=== PATIENT | female | born 1995 | race Caucasian/White ===

== ENCOUNTER 2018-07-21 10:00 | Inpatient (IN) | payer BC ==
[2018-07-21] MEDS ORDERED: Citric Acid/Sodium Citrate Solution 30 ML Cup PO ONE (10:08)
[2018-07-21] MEDS ORDERED: Sodium Chloride 0.9% 2.5 ML Syringe FLUSH PRN (10:08)
[2018-07-21] MEDS ORDERED: Sodium Chloride 0.9% 10 ML Syringe FLUSH PRN (10:08)
[2018-07-21] MEDS ORDERED: Lactated Ringers 1,000 ML IV SCH ×2 (10:15→13:15)
[2018-07-21] MEDS ORDERED: Oxytocin/0.9 % Sodium Chloride 30 UNIT/500 ML BAG IV SCH (10:15)
[2018-07-21] MEDS ORDERED: ceFAZolin 2 GM in Premix Bag 1 BAG IV ONE (10:30)
[2018-07-21] MEDS ORDERED: Ondansetron 4 MG/2 ML SDV ONE (11:20)
[2018-07-21] MEDS ORDERED: Morphine PF 10 MG/10 ML SDV ONE (11:20)
--- NOTE | 2018-07-21 11:21 | PCM.PREANE ---
Preanesthetic Assessment - Anesthesia/Transfusion/Family Hx Anesthesia History: Prior Anesthesia Without Reaction Transfusion History: No Prior Transfusion(s) - Review of Systems General: No Symptoms Pulmonary: No Symptoms Cardiovascular: No Symptoms Neurological: No Symptoms Other: Reports: None - Physical Assessment NPO Status Date: 07/20/18 Height: 5 ft 3 in Weight: 90.265 kg ASA Class: 2 Mental Status: Alert & Oriented x3 Airway Class: Mallampati = 1 Dentition: Reports: Normal Dentition ROM/Head Extension: Full Lungs: Clear to Auscultation, Normal Respiratory Effort Cardiovascular: Regular Rate, Regular Rhythm - Lab Values: Laboratory Last Values WBC 8.71 K/uL (4.0-11.0) 07/21/18 10:32 RBC 4.61 M/uL (4.30-5.90) 07/21/18 10:32 Hgb 13.9 g/dL (12.0-16.0) 07/21/18 10:32 Hct 40.8 % (36.0-46.0) 07/21/18 10:32 MCV 88.5 fL (80.0-98.0) 07/21/18 10:32 MCH 30.2 pg (27.0-32.0) 07/21/18 10:32 MCHC 34.1 g/dL (31.0-37.0) 07/21/18 10:32 RDW Std Deviation 43.1 fl (28.0-62.0) 07/21/18 10:32 RDW Coeff of Zachary 13 % (11.0-15.0) 07/21/18 10:32 Plt Count 201 K/uL (150-400) 07/21/18 10:32 MPV 10.30 fL (7.40-12.00) 07/21/18 10:32 Nucleated RBC % 0.0 /100WBC 07/21/18 10:32 Nucleated RBCs # 0 K/uL 07/21/18 10:32 Blood Type O POSITIVE 07/21/18 10:32 - Allergies Allergies/Adverse Reactions: Allergies Allergy/AdvReac Type Severity Reaction Status Date / Time amoxicillin [Amoxicillin] Allergy Mild Hives Verified 07/21/18 08:49 ketorolac [From Toradol] Allergy Itching Verified 07/21/18 08:50 - Blood Blood Available: No - Anesthesia Plan Pre-Op Medication Ordered: Antacids - Acknowledgements Anesthesia Type Planned: Spinal Pt an Appropriate Candidate for the Planned Anesthesia: Yes Alternatives and Risks of Anesthesia Discussed w Pt/Guardian: Yes Pt/Guardian Understands and Agrees with Anesthesia Plan: Yes Additional Comments: PMH: scheduled repeat c section PLAN: spinal with duramorph PreAnesthesia Questionnaire - Past Health History Medical/Surgical History: Denies Medical/Surgical History Gastrointestinal History: Reports: GERD Other Gastrointestinal History: only during [employer]PRESENTATIVE History: Reports: Musculoskeletal History: Reports: Fracture Other Musculoskeletal History: both feet Neurological History: Reports: Concussion, Migraines Endocrine/Metabolic History: Reports: Obesity/BMI 30+ - Past Surgical History Female Surgical History: Reports: Section Musculoskeletal Surgical History: Reports: Shoulder Surgery Other Musculoskeletal Surgeries/Procedures:: right RTCR - SUBSTANCE USE Smoking Status *Q: Never Smoker Recreational Drug Use History: No - HOME MEDS Home Medications: Home Meds Vit #108/Iron/FA [ One Tablet] 1 tab PO DAILY 07/22/14 [History ] Butalbital/Aspirin/Caffeine [Fiorinal 50-325-40 MG] 1 cap PO ASDIRECTED PRN [History] Magnesium 250 mg PO TID 07/21/18 [History] - CURRENT (IN HOUSE) MEDS Current Meds: Current Medications Lactated Ringer's (Ringers, Lactated) 1,000 mls @ 500 mls/hr IV BOLUS FLORI Last Admin: 07/21/18 10:42 Dose: 999 mls/hr Oxytocin/Sodium Chloride (Oxytocin 30 Unit/500 Ml-Ns) 30 unit in 500 mls @ 250 mls/hr IV TITRATE FLORI Sodium Chloride (Saline Flush) 10 ml FLUSH ASDIRECTED PRN PRN Reason: Keep Vein Open Sodium Chloride (Saline Flush) 2.5 ml FLUSH ASDIRECTED PRN PRN Reason: Keep Vein Open Discontinued Medications Citric Acid/Sodium Citrate (Bicitra Solution) 30 ml PO ONETIME ONE Stop: 07/21/18 10:09 Cefazolin Sodium/Dextrose 2 gm (/ Premix) 50 mls @ 100 mls/hr IV ONETIME ONE Stop: 07/21/18 10:59
[2018-07-21] MEDS ORDERED: ceFAZolin 1 GM Vial ONE (12:02)
[2018-07-21] MEDS ORDERED: Sodium Chloride 0.9% 20 ML ONE (12:02)
[2018-07-21] MEDS ORDERED: Phenylephrine/Normal Saline 100 MCG/ML 10 ML Syringe ONE (12:33)
[2018-07-21] MEDS ORDERED: Oxytocin 10 Units/1 ML SDV ONE (12:33)
[2018-07-21] MEDS ORDERED: fentaNYL 100 MCG/2 ML SDV ONE (12:36)
[2018-07-21] MEDS ORDERED: Nalbuphine 10 MG/1 ML Vial IVPUSH PRN (12:40)
[2018-07-21] MEDS ORDERED: HYDROmorphone 2 MG/ML Syringe IVPUSH ONE (12:40)
[2018-07-21] MEDS ORDERED: fentaNYL 100 MCG/2 ML SDV IVPUSH PRN (12:40)
[2018-07-21] MEDS ORDERED: Lanolin 100% Cream 7 GM Tube TOP PRN (13:11)
[2018-07-21] MEDS ORDERED: Bisacodyl 10 MG Supp RECTAL PRN (13:11)
[2018-07-21] MEDS ORDERED: Acetaminophen/oxyCODONE 325-5 MG Tab PO PRN ×2 (13:11)
[2018-07-21] MEDS ORDERED: Ondansetron 4 MG/2 ML SDV IVPUSH PRN (13:11)
[2018-07-21] MEDS ORDERED: diphenhydrAMINE 50 MG/ML SDV IVPUSH PRN (13:11)
--- NOTE | 2018-07-21 13:18 | PCM.OPNOTE ---
- General Post-Op/Procedure Note Date of Surgery/Procedure: 07/21/18 Operative Procedure(s): Repeat section Findings: Female , Wt 3330grams, Apgars 8 and 9. Grossly normal placenta with 3 vessel cord. Normal appearing uterus, tubes and ovaries. No pelvic or intraabdominal adhesions Primary Surgeon: Marcella Diamond Fluid Replacement, Intraop: 1,200 Output, Urine Amount: 50 EBL in mLs: 600 Complications: None Condition: Good
[2018-07-21] MEDS: Acetaminophen 1,000 MG in Premix Bag 1 BAG IV SCH ×2 (13:35→20:39)
--- NOTE | 2018-07-21 15:35 | PCM.POSTAN ---
POST ANESTHESIA ASSESSMENT - MENTAL STATUS Mental Status: Alert, Oriented - RESPIRATORY Respiratory Status: Respiratory Rate WNL, Airway Patent, O2 Saturation Stable - CARDIOVASCULAR CV Status: Pulse Rate WNL, Blood Pressure Stable - GASTROINTESTINAL GI Status: No Symptoms - POST OP HYDRATION Hydration Status: Adequate & Stable - OBSERVATIONS Free Text/Narrative:: seen prior to discharge from PACU, documented laer in the day.
[2018-07-21] MEDS: Docusate Sodium 100 MG Cap PO SCH (23:24)
--- NOTE | 2018-07-22 01:55 | OR ---
SURGEON: Marcella Diamond MD DATE OF PROCEDURE: 07/21/2018 PREOPERATIVE DIAGNOSES: 1. Term at 39 weeks gestation. 2. Repeat elective section. 3. Prior section, declined . POSTOPERATIVE DIAGNOSES: 1. Term at 39 weeks gestation. 2. Repeat elective section. 3. Prior section, declined . 4. Delivered. PROCEDURE: Repeat low transverse section via Pfannenstiel. ANESTHESIA: Spinal. ESTIMATED BLOOD LOSS: 600 mL. IV FLUIDS: 1200 mL of crystalloid. URINE OUTPUT: 50 mL clear at the end of the procedure. COMPLICATIONS: None. CONDITION: Stable to recovery room. FINDINGS: Female infant with weight of 3330 g, scores of 8 and 9 at one and five minutes respectively. Grossly normal looking uterus, tubes, and ovaries. Grossly normal placenta with 3-vessel cord. No intraabdominal or pelvic adhesions visualized. INDICATIONS: Anuradha is a 23-year-old G2, P1-0-0-1, who was admitted for repeat elective section for a history of a prior section. She declined a trial of labor after section. DESCRIPTION OF PROCEDURE: The patient was taken to the operating room where spinal anesthesia was performed and found to be adequate. She was then prepped and draped in the usual sterile fashion in the dorsal supine position with a leftward tilt. She received 2 g of Ancef. SCDs were in place and an appropriate time-out was held. A Pfannenstiel skin incision was made along the old scar and carried through to the underlying layer of fascia with the Bovie. The fascia was scored in the midline and this incision was extended laterally with the Dubois scissors. The superior aspect of this fascial incision was grasped with Ganga clamps, elevated, and underlying rectus muscle was dissected with the Bovie. Attention was turned to the inferior aspect of this incision, which in similar fashion was grasped, tented up with Ganga clamps and the rectus muscle dissected off with the Bovie. The rectus muscle was then in the midline until the parietal peritoneum was reached. The parietal peritoneum was then entered bluntly and a careful digital sweep was performed with no adhesions palpated. This incision was then extended upwards and downwards with good visualization of internal organs and the bladder by both blunt and sharp dissection. An Lisandro O self-retaining retractor was then inserted into the abdominal cavity. The vesicouterine peritoneum was identified, grasped with pickups, and entered sharply with the Metzenbaum scissors and a bladder flap was created digitally. The lower uterine segment was then incised in a transverse fashion with a scalpel and extended upwards and downwards bluntly. The 's head was delivered atraumatically followed by the rest of the baby. The baby was vigorous and cried spontaneously at . The cord was double clamped and cut, and the infant was handed over to the waiting nursery staff. Cord blood and gas samples were obtained. The placenta was then delivered spontaneously via massage. The uterus was cleaned of all clots and debris. The hysterotomy was repaired in two layers using 0 Vicryl suture. The first layer was repaired in a running fashion and second imbricating layer was performed to obtain excellent hemostasis. The gutters were cleaned of all clots and debris. The tubes and ovaries were then inspected and found to be normal. Hemostasis was evident along the hysterotomy site. The Lisandro O retractor was removed. The peritoneal edges were identified and this layer was closed with 2-0 Vicryl in a running fashion. The fascial layer was found to be hemostatic. The fascia was then closed with 0 Vicryl in a running fashion. The subcuticular layer was then made hemostatic with the Bovie. The skin was closed with subcuticular stitches using 4-0 Monocryl suture. The patient tolerated the procedure well. Sponge, instrument, and needle counts were correct at the end of the procedure. The patient was taken to the recovery room in stable condition and the baby to the nursery in a stable condition. ADUMVIV / PARAGL /[id number] [id number]
[2018-07-22] MEDS: Acetaminophen 1,000 MG in Premix Bag 1 BAG IV SCH ×2 (03:04→08:28)
--- NOTE | 2018-07-22 07:12 | PCM.PNPP ---
- General Info Date of Service: 07/22/18 Functional Status: Reports: Pain Controlled, Tolerating Diet, Ambulating - Review of Systems General: Denies: Fever, Fatigue HEENT: Denies: Headaches Pulmonary: Denies: Shortness of Breath, Pleuritic Chest Pain, Cough Cardiovascular: Denies: Chest Pain, Palpitations, Dyspnea on Exertion Gastrointestinal: Denies: Abdominal Pain Genitourinary: Denies: Flank Pain - General Info Date of Service: 07/22/18 - Patient Data Vital Signs - Most Recent: Last Vital Signs Temp 36.4 C 07/22/18 05:00 Pulse 80 07/22/18 05:00 Resp 16 07/22/18 06:00 BP 98/54 L 07/22/18 05:00 Pulse Ox 95 07/22/18 06:00 Weight - Most Recent: 199 lb 0.004 oz I&O - Last 24 Hours: Intake & Output 07/21/18 07/22/18 07/22/18 22:59 06:59 14:59 Output Total 375 1200 Balance -375 -1200 Lab Results - Last 24 Hours: Laboratory Results - last 24 hr 07/21/18 07/21/18 07/21/18 Range/Units 10:32 10:32 12:28 WBC 8.71 (4.0-11.0) K/uL RBC 4.61 (4.30-5.90) M/uL Hgb 13.9 (12.0-16.0) g/dL Hct 40.8 (36.0-46.0) % MCV 88.5 (80.0-98.0) fL MCH 30.2 (27.0-32.0) pg MCHC 34.1 (31.0-37.0) g/dL RDW Std Deviation 43.1 (28.0-62.0) fl RDW Coeff of Zachary 13 (11.0-15.0) % Plt Count 201 (150-400) K/uL MPV 10.30 (7.40-12.00) fL Nucleated RBC % 0.0 /100WBC Nucleated RBCs # 0 K/uL Cord ABG pH 7.301 (7.18-7.38) Cord ABG Base Excess -4 (-10--2) Cord VBG pH 7.358 (7.25-7.45) Cord VBG Base Excess -4 (-10--2) Blood Type O POSITIVE Antibody Screen NEGATIVE 07/22/18 Range/Units 06:07 WBC (4.0-11.0) K/uL RBC (4.30-5.90) M/uL Hgb 11.8 L (12.0-16.0) g/dL Hct 34.9 L (36.0-46.0) % MCV (80.0-98.0) fL MCH (27.0-32.0) pg MCHC (31.0-37.0) g/dL RDW Std Deviation (28.0-62.0) fl RDW Coeff of Zachary (11.0-15.0) % Plt Count (150-400) K/uL MPV (7.40-12.00) fL Nucleated RBC % /100WBC Nucleated RBCs # K/uL Cord ABG pH (7.18-7.38) Cord ABG Base Excess (-10--2) Cord VBG pH (7.25-7.45) Cord VBG Base Excess (-10--2) Blood Type Antibody Screen Med Orders - Current: Current Medications Bisacodyl (Dulcolax) 10 mg RECTAL ONETIME PRN PRN Reason: Constipation Diphenhydramine HCl (Benadryl) 25 mg IVPUSH Q6H PRN PRN Reason: Itching or Nausea Last Admin: 07/21/18 14:58 Dose: 25 mg Docusate Sodium (Colace) 100 mg PO BID [facility] Last Admin: 07/21/18 23:24 Dose: Not Given Emollient Ointment (Lansinoh Hpa) 0 gm TOP ASDIRECTED PRN PRN Reason: Sore Nipples Fentanyl (Sublimaze) 50 mcg IVPUSH Q5M PRN PRN Reason: Pain (severe 7-10) Stop: 07/22/18 12:40 Lactated Ringer's (Ringers, Lactated) 1,000 mls @ 125 mls/hr IV ASDIRECTED [facility] Last Admin: 07/21/18 14:39 Dose: 125 mls/hr Acetaminophen 1,000 mg/ Premix 100 mls @ 400 mls/hr IV Q6H [facility] Stop: 07/22/18 07:44 Last Admin: 07/22/18 03:04 Dose: 400 mls/hr Ibuprofen (Motrin) 800 mg PO Q8H PRN PRN Reason: mild pain or fever Nalbuphine HCl (Nubain) 2.5 mg IVPUSH Q3H PRN PRN Reason: Pruritis Stop: 07/22/18 12:40 Ondansetron HCl (Zofran) 4 mg IVPUSH Q4H PRN PRN Reason: Nausea/Vomiting Oxycodone/Acetaminophen (Percocet 325-5 Mg) 1 tab PO Q4H PRN PRN Reason: Pain (moderate 4-6) Oxycodone/Acetaminophen (Percocet 325-5 Mg) 2 tab PO Q4H PRN PRN Reason: Pain (moderate 4-6) Discontinued Medications Cefazolin Sodium (Ancef) Confirm Administered Dose 2 gm .ROUTE .STK-MED ONE Stop: 07/21/18 12:03 Citric Acid/Sodium Citrate (Bicitra Solution) 30 ml PO ONETIME ONE Stop: 07/21/18 10:09 Last Admin: 07/21/18 11:38 Dose: 30 ml Fentanyl (Sublimaze) Confirm Administered Dose 100 mcg .ROUTE .STK-MED ONE Stop: 07/21/18 12:37 Hydromorphone HCl (Dilaudid) 2 mg IVPUSH ONETIME ONE Stop: 07/21/18 12:41 Last Admin: 07/21/18 23:25 Dose: Not Given Cefazolin Sodium/Dextrose 2 gm (/ Premix) 50 mls @ 100 mls/hr IV ONETIME ONE Stop: 07/21/18 10:59 Last Admin: 07/21/18 23:25 Dose: Not Given Lactated Ringer's (Ringers, Lactated) 1,000 mls @ 500 mls/hr IV BOLUS FLORI Last Admin: 07/21/18 10:42 Dose: 999 mls/hr Oxytocin/Sodium Chloride (Oxytocin 30 Unit/500 Ml-Ns) 30 unit in 500 mls @ 250 mls/hr IV TITRATE FLORI Sodium Chloride (Normal Saline) Confirm Administered Dose 20 mls @ as directed .ROUTE .STK-MED ONE Stop: 07/21/18 12:03 Acetaminophen (Ofirmev) Confirm Administered Dose 100 mls @ as directed IV .STK- MED ONE Stop: 07/21/18 13:07 Morphine Sulfate (Duramorph Pf) Confirm Administered Dose 10 mg .ROUTE .STK-MED ONE Stop: 07/21/18 11:21 Ondansetron HCl (Zofran) Confirm Administered Dose 4 mg .ROUTE .STK-MED ONE Stop: 07/21/18 11:21 Oxytocin (Pitocin) Confirm Administered Dose 30 unit .ROUTE .STK-MED ONE Stop: 07/21/18 12:34 Phenylephrine HCl (Phenylephrine In Ns 100 Mcg/Ml) Confirm Administered Dose 1 mg .ROUTE .STK-MED ONE Stop: 07/21/18 12:34 Sodium Chloride (Saline Flush) 10 ml FLUSH ASDIRECTED PRN PRN Reason: Keep Vein Open Sodium Chloride (Saline Flush) 2.5 ml FLUSH ASDIRECTED PRN PRN Reason: Keep Vein Open - Interaction Infant Disposition, : [place] in Room with Family Interaction: Holding Infant Infant Feeding: Breastfed ; Nursed Well, Continues to Breastfeed Support Person: Mother, Significant Other - Recovery Exam Fundal Tone: Firm Fundal Level: 1 Fingerbreadths Below Umbilicus Fundal Placement: Midline Lochia Amount: Small Lochia Color: Rubra/Red Urinary Elimination: Other (see below) (cather removed this am, yet to void) - Exam General: Alert, Oriented Neck: Supple Lungs: Clear to Auscultation, Normal Respiratory Effort Cardiovascular: Regular Rate, Regular Rhythm GI/Abdominal Exam: Normal Bowel Sounds, Non-Tender Extremities: Non-Tender, Pedal Edema Wound/Incisions: Healing Well Psy/Mental Status: Alert, Normal Affect, Normal Mood - Problem List & Annotations (1) section SNOMED Code(s): 41043628 - section Status: Acute Current Visit: Yes - Problem List Review Problem List Initiated/Reviewed/Updated: Yes - My Orders Last 24 Hours: My Active Orders 07/21/18 10:09 Procedure Site Prep Instruct [RC] ASDIRECTED Up ad Flory [RC] ASDIRECTED Vital Signs [RC] PER UNIT ROUTINE 07/21/18 10:11 Notify Provider Vital Signs [RC] PRN 07/21/18 13:11 Patient Status [ADT] Routine Ambulate [RC] PER UNIT ROUTINE Communication Order [RC] PER UNIT ROUTINE May Shower [RC] ASDIRECTED RT Incentive Spirometry [RC] Q2HWA Vital Signs [RC] PER UNIT ROUTINE Acetaminophen/oxyCODONE [Percocet 325-5 MG] 1 tab PO Q4H PRN Acetaminophen/oxyCODONE [Percocet 325-5 MG] 2 tab PO Q4H PRN Bisacodyl [Dulcolax] 10 mg RECTAL ONETIME PRN Ibuprofen [Motrin] 800 mg PO Q8H PRN Lanolin [Lansinoh HPA] See Dose Instructions TOP ASDIRECTED PRN Ondansetron [Zofran] 4 mg IVPUSH Q4H PRN diphenhydrAMINE [Benadryl] 25 mg IVPUSH Q6H PRN Abdominal Binder [OM.PC] Routine Assess Lochia [WOMSER] Per Unit Routine Assess Uterine Involution [WOMSER] Per Unit Routine Breast Pump [WOMSER] Per Unit Routine Peripheral IV Discontinue [OM.PC] Routine Sequential Compression Device [OM.PC] Per Unit Routine Resuscitation Status Routine 07/21/18 13:13 Intake and Output [RC] Q4H Notify Provider Intake and Out [RC] ASDIRECTED Notify Provider Vital Signs [RC] ASDIRECTED 07/21/18 13:15 Lactated Ringers [Ringers, Lactated] 1,000 ml IV ASDIRECTED 07/21/18 13:30 Acetaminophen [Ofirmev] 1,000 mg Premix Bag 1 bag IV Q6H 07/21/18 21:00 Docusate Sodium [Colace] 100 mg PO BID 07/21/18 Dinner Regular Diet [DIET] - Assessment Assessment:: POD#1 s/p RLTCS, stable and afebrile Doing well - Plan Plan:: Continue routine care and aim for discharge tomorrow
--- NOTE | 2018-07-22 07:48 | PCM48HPAN ---
Post Anesthesia Note - EVALUATION WITHIN 48HRS OF ANESTHETIC Vital Signs in Normal Range: Yes Patient Participated in Evaluation: Yes Respiratory Function Stable: Yes Airway Patent: Yes Cardiovascular Function Stable: Yes Hydration Status Stable: Yes Pain Control Satisfactory: Yes Nausea and Vomiting Control Satisfactory: Yes Mental Status Recovered: Yes Resp Rate: 16 - COMMENTS/OBSERVATIONS Free Text/Narrative:: Pt doing well this AM. States that she did struggle with pruritis overnight and medications "took the edge off", but seems to be doing better this AM. Pt states she has been out of bed with no problems.
[2018-07-22] MEDS: Docusate Sodium 100 MG Cap PO SCH ×2 (08:28→21:30)
[2018-07-22] MEDS: Ibuprofen 800 MG Tab PO PRN ×2 (09:07→16:26)
[2018-07-23] MEDS: Ibuprofen 800 MG Tab PO PRN ×2 (00:12→09:19)
[2018-07-23] MEDS ORDERED: Magnesium Hydroxide 400 MG/5 ML Susp 30 ML Cup PO ONE (08:04)
--- NOTE | 2018-07-23 08:17 | PCM.PNPP ---
- General Info Date of Service: 07/23/18 Functional Status: Reports: Pain Controlled, Tolerating Diet, Ambulating, Urinating - Review of Systems General: Denies: Fever, Chills HEENT: Denies: Headaches Pulmonary: Denies: Shortness of Breath, Pleuritic Chest Pain Cardiovascular: Denies: Chest Pain, Palpitations Gastrointestinal: Denies: Abdominal Pain Genitourinary: Denies: Dysuria, Incontinence, Flank Pain Psychiatric: Denies: Confusion, Depression, Anxiety - General Info Date of Service: 07/23/18 - Patient Data Vital Signs - Most Recent: Last Vital Signs Temp 36.3 C 07/22/18 19:42 Pulse 96 07/22/18 19:42 Resp 16 07/22/18 19:42 BP 107/74 07/22/18 19:42 Pulse Ox 96 07/22/18 19:42 Weight - Most Recent: 199 lb 0.004 oz Med Orders - Current: Current Medications Bisacodyl (Dulcolax) 10 mg RECTAL ONETIME PRN PRN Reason: Constipation Diphenhydramine HCl (Benadryl) 25 mg IVPUSH Q6H PRN PRN Reason: Itching or Nausea Last Admin: 07/21/18 14:58 Dose: 25 mg Docusate Sodium (Colace) 100 mg PO BID [facility] Last Admin: 07/22/18 21:30 Dose: 100 mg Emollient Ointment (Lansinoh Hpa) 0 gm TOP ASDIRECTED PRN PRN Reason: Sore Nipples Lactated Ringer's (Ringers, Lactated) 1,000 mls @ 125 mls/hr IV ASDIRECTED [facility] Last Admin: 07/21/18 14:39 Dose: 125 mls/hr Ibuprofen (Motrin) 800 mg PO Q8H PRN PRN Reason: mild pain or fever Last Admin: 07/23/18 00:12 Dose: 800 mg Ondansetron HCl (Zofran) 4 mg IVPUSH Q4H PRN PRN Reason: Nausea/Vomiting Oxycodone/Acetaminophen (Percocet 325-5 Mg) 1 tab PO Q4H PRN PRN Reason: Pain (moderate 4-6) Oxycodone/Acetaminophen (Percocet 325-5 Mg) 2 tab PO Q4H PRN PRN Reason: Pain (moderate 4-6) Discontinued Medications Cefazolin Sodium (Ancef) Confirm Administered Dose 2 gm .ROUTE .STK-MED ONE Stop: 07/21/18 12:03 Citric Acid/Sodium Citrate (Bicitra Solution) 30 ml PO ONETIME ONE Stop: 07/21/18 10:09 Last Admin: 07/21/18 11:38 Dose: 30 ml Fentanyl (Sublimaze) Confirm Administered Dose 100 mcg .ROUTE .STK-MED ONE Stop: 07/21/18 12:37 Fentanyl (Sublimaze) 50 mcg IVPUSH Q5M PRN PRN Reason: Pain (severe 7-10) Stop: 07/22/18 12:40 Hydromorphone HCl (Dilaudid) 2 mg IVPUSH ONETIME ONE Stop: 07/21/18 12:41 Last Admin: 07/21/18 23:25 Dose: Not Given Cefazolin Sodium/Dextrose 2 gm (/ Premix) 50 mls @ 100 mls/hr IV ONETIME ONE Stop: 07/21/18 10:59 Last Admin: 07/21/18 23:25 Dose: Not Given Lactated Ringer's (Ringers, Lactated) 1,000 mls @ 500 mls/hr IV BOLUS FLORI Last Admin: 07/21/18 10:42 Dose: 999 mls/hr Oxytocin/Sodium Chloride (Oxytocin 30 Unit/500 Ml-Ns) 30 unit in 500 mls @ 250 mls/hr IV TITRATE FLORI Sodium Chloride (Normal Saline) Confirm Administered Dose 20 mls @ as directed .ROUTE .STK-MED ONE Stop: 07/21/18 12:03 Acetaminophen (Ofirmev) Confirm Administered Dose 100 mls @ as directed IV .STK- MED ONE Stop: 07/21/18 13:07 Acetaminophen 1,000 mg/ Premix 100 mls @ 400 mls/hr IV Q6H [facility] Stop: 07/22/18 07:44 Last Admin: 07/22/18 08:28 Dose: 400 mls/hr Magnesium Hydroxide (Milk Of Magnesia) 30 ml PO ONETIME ONE Stop: 07/23/18 08:05 Morphine Sulfate (Duramorph Pf) Confirm Administered Dose 10 mg .ROUTE .STK-MED ONE Stop: 07/21/18 11:21 Nalbuphine HCl (Nubain) 2.5 mg IVPUSH Q3H PRN PRN Reason: Pruritis Stop: 07/22/18 12:40 Ondansetron HCl (Zofran) Confirm Administered Dose 4 mg .ROUTE .STK-MED ONE Stop: 07/21/18 11:21 Oxytocin (Pitocin) Confirm Administered Dose 30 unit .ROUTE .STK-MED ONE Stop: 07/21/18 12:34 Phenylephrine HCl (Phenylephrine In Ns 100 Mcg/Ml) Confirm Administered Dose 1 mg .ROUTE .STK-MED ONE Stop: 07/21/18 12:34 Sodium Chloride (Saline Flush) 10 ml FLUSH ASDIRECTED PRN PRN Reason: Keep Vein Open Sodium Chloride (Saline Flush) 2.5 ml FLUSH ASDIRECTED PRN PRN Reason: Keep Vein Open - Infant Interaction Disposition, : in Room with Family Infant Interaction: Holding Infant Feeding: Breastfed ; Nursed Well, Continues to Breastfeed Support Person: Mother, Significant Other - Recovery Exam Fundal Tone: Firm Fundal Level: 1 Fingerbreadths Below Umbilicus Fundal Placement: Midline Lochia Amount: Scant Lochia Color: Rubra/Red Perineum Description: Intact, Minimal Bruising/Swelling Episiotomy/Laceration: Approximated Bladder Status: Voiding - Exam General: Alert, Oriented Lungs: Clear to Auscultation, Normal Respiratory Effort Cardiovascular: Regular Rate, Regular Rhythm Extremities: Non-Tender, Pedal Edema Wound/Incisions: Healing Well Psy/Mental Status: Alert, Normal Affect, Normal Mood - Problem List & Annotations (1) section SNOMED Code(s): 93976406 - section Status: Acute Current Visit: Yes - Problem List Review Problem List Initiated/Reviewed/Updated: Yes - Assessment Assessment:: POD# s/p RLTCS, stable and afebrile Doing well and clinically stable for discharge today - Plan Plan:: Discharge precautions reviewed Nothing in the vagina for 6 weeks Continue PNV. Bleeding and infection precautions reviewed depression S/S reviewed, encouraged to call with concerns Follow up in clinic as already scheduled
[2018-07-23] MEDS: Docusate Sodium 100 MG Cap PO SCH (09:20)
[2018-07-23 13:29] VITALS: BP 117/72
== END 2018-07-23 11:45 | disposition home or self-care (01) | DRG 540 ==
LOC: MW.OB 10:00
PROVIDERS: ADMIT Obstetrics & Gynecology; ATTEND Obstetrics & Gynecology
PROC: 6A550ZT Pheresis of Cord Blood Stem Cells, Single (ICD-10-PCS; principal; 2018-07-21)
PROC: 10D00Z1 Extraction of Products of Conception, Low, Open Approach (ICD-10-PCS; principal; 2018-07-21)
DX: O34.211 Maternal care for low transverse scar from previous cesarean delivery (principal); N85.8 Other specified noninflammatory disorders of uterus; O99.214 Obesity complicating childbirth; E66.9 Obesity, unspecified; O99.354 Diseases of the nervous system complicating childbirth; Z3A.39 39 weeks gestation of pregnancy; Z37.0 Single live birth; O99.62 Diseases of the digestive system complicating childbirth; K21.9 Gastro-esophageal reflux disease without esophagitis; G43.909 Migraine, unspecified, not intractable, without status migrainosus; O99.73 Diseases of the skin and subcutaneous tissue complicating the puerperium; L29.9 Pruritus, unspecified; Z88.1 Allergy status to other antibiotic agents; Z88.8 Allergy status to other drugs, medicaments and biological substances
CPT/HCPCS: 36415; 59025; 82803; 85014; 85018; 85027; 86850; 86900; 86901; A9270-GY; J0131; J0690; J1200; J2270; J2370; J2405; J2590; J3010; J7120

== ENCOUNTER 2020-08-17 06:49 | Inpatient (IN) | payer BC ==
[2020-08-17] MEDS ORDERED: Phenylephrine 1% 10 MG/ML SDV ONE (07:25)
[2020-08-17] MEDS ORDERED: Oxytocin 10 Units/1 ML SDV ONE (07:25)
[2020-08-17] MEDS ORDERED: Ondansetron 4 MG/2 ML SDV ONE (07:25)
[2020-08-17] MEDS ORDERED: Ketorolac 30 MG/ML SDV ONE (07:25)
[2020-08-17] MEDS ORDERED: ceFAZolin 1 GM Vial ONE (07:26)
[2020-08-17] MEDS ORDERED: Morphine PF 10 MG/10 ML SDV ONE (07:29)
--- NOTE | 2020-08-17 07:41 | PCM.PREANE ---
Preanesthetic Assessment - Anesthesia/Transfusion/Family Hx Anesthesia History: Prior Anesthesia Without Reaction Family History of Anesthesia Reaction: No Transfusion History: No Prior Transfusion(s) - Physical Assessment NPO Status Date: 08/17/20 NPO Status Time: 00:05 ASA Class: 2E - Allergies Allergies/Adverse Reactions: Allergies Allergy/AdvReac Type Severity Reaction Status Date / Time amoxicillin [Amoxicillin] Allergy Mild Hives Verified 08/16/20 08:03 cefdinir [From Omnicef] Allergy Hives Verified 08/16/20 08:03 ketorolac [From Toradol] Allergy Itching Verified 08/16/20 08:03 - Acknowledgements Anesthesia Type Planned: Spinal Pt an Appropriate Candidate for the Planned Anesthesia: Yes Alternatives and Risks of Anesthesia Discussed w Pt/Guardian: Yes Pt/Guardian Understands and Agrees with Anesthesia Plan: Yes PreAnesthesia Questionnaire - Past Health History Medical/Surgical History: Denies Medical/Surgical History Gastrointestinal History: Reports: GERD Other Gastrointestinal History: only during [employer] History: Reports: Musculoskeletal History: Reports: Fracture Other Musculoskeletal History: both feet Neurological History: Reports: Concussion, Migraines Endocrine/Metabolic History: Reports: Obesity/BMI 30+ - Past Surgical History Female Surgical History: Reports: Section Musculoskeletal Surgical History: Reports: Shoulder Surgery Other Musculoskeletal Surgeries/Procedures:: right RTCR - HOME MEDS Home Medications: Home Meds Mv-Mn/Iron/FA/Herbal/Digestive [ One Tablet] 1 tab PO DAILY 07/22/14 [History] Venlafaxine [Effexor] 75 mg PO DAILY 08/10/20 [History] - CURRENT (IN HOUSE) MEDS Current Meds: Current Medications Discontinued Medications Cefazolin Sodium (Ancef) Confirm Administered Dose 2 gm .ROUTE .STK-MED ONE Stop: 08/17/20 07:27 Ketorolac Tromethamine (Toradol) Confirm Administered Dose 30 mg .ROUTE .STK-MED ONE Stop: 08/17/20 07:26 Morphine Sulfate (Duramorph Pf) Confirm Administered Dose 10 mg .ROUTE .STK-MED ONE Stop: 08/17/20 07:30 Ondansetron HCl (Zofran) Confirm Administered Dose 4 mg .ROUTE .STK-MED ONE Stop: 08/17/20 07:26 Oxytocin (Pitocin) Confirm Administered Dose 20 unit .ROUTE .STK-MED ONE Stop: 08/17/20 07:26 Phenylephrine HCl (Pablo-Synephrine) Confirm Administered Dose 10 mg .ROUTE .STK- MED ONE Stop: 08/17/20 07:26
[2020-08-17] MEDS ORDERED: Sodium Chloride 0.9% 10 ML SDV IV PRN (07:46)
[2020-08-17] MEDS ORDERED: Sodium Chloride 0.9% 10 ML Syringe FLUSH PRN (07:46)
[2020-08-17] MEDS ORDERED: Citric Acid/Sodium Citrate Solution 30 ML Cup PO ONE (07:46)
[2020-08-17] MEDS ORDERED: Sodium Chloride 0.9% 2.5 ML Syringe FLUSH PRN (07:46)
[2020-08-17] MEDS ORDERED: Oxytocin/0.9 % Sodium Chloride 30 UNIT/500 ML BAG IV SCH (08:00)
[2020-08-17] MEDS: Lactated Ringers 1,000 ML IV SCH ×2 (08:05→08:35)
[2020-08-17] MEDS ORDERED: Midazolam 1 MG/ML 2 ML SDV ONE (09:34)
[2020-08-17] MEDS ORDERED: diphenhydrAMINE 50 MG/ML SDV IVPUSH PRN (10:21)
[2020-08-17] MEDS ORDERED: Ondansetron 4 MG/2 ML SDV IVPUSH PRN (10:21)
[2020-08-17] MEDS ORDERED: Tranexamic Acid 1,000 MG in Sodium Chloride 0.9% 100 ML IV PRN (10:21)
[2020-08-17] MEDS ORDERED: Bisacodyl 10 MG Supp RECTAL PRN (10:21)
[2020-08-17] MEDS ORDERED: Misoprostol 200 MCG Tab RECTAL PRN (10:21)
[2020-08-17] MEDS ORDERED: Ibuprofen 800 MG Tab PO PRN (10:21)
[2020-08-17] MEDS ORDERED: Lanolin 100% Cream 7 GM Tube TOP PRN (10:21)
[2020-08-17] MEDS ORDERED: Acetaminophen/oxyCODONE 325-5 MG Tab PO PRN (10:21)
[2020-08-17] MEDS ORDERED: Methylergonovine 0.2 MG/1 ML Amp IM PRN (10:21)
[2020-08-17] MEDS ORDERED: Oxytocin 10 Units/1 ML SDV IM PRN (10:21)
--- NOTE | 2020-08-17 10:26 | PCM.OPNOTE ---
<Celia Brock - Last Filed: 08/17/20 10:21> - General Post-Op/Procedure Note Date of Surgery/Procedure: 08/17/20 Operative Procedure(s): Repeat section Findings: Repeat section delivering viable male , weight 3740g, apgars 8 & 9. Pre Op Diagnosis: Term Post-Op Diagnosis: section delivered Anesthesia Technique: Spinal Primary Surgeon: Sylwia Barlow Secondary Surgeon: Celia Brock ([id number]) Pathology: None known Fluid Replacement, Intraop: 1,000 Output, Urine Amount: 500 EBL in mLs: 500 Complications: None known Condition: Stable Free Text/Narrative:: Intake & Output 08/16/20 08/17/20 08/17/20 22:59 06:59 14:59 Intake Total 999 Balance 999 <Sylwia Barlow - Last Filed: 08/17/20 14:28> - General Post-Op/Procedure Note Operative Procedure(s): Tertiary Lower segment transverse section Findings: Live male delivered at 931am , 8/9 weight 3740g Pre Op Diagnosis: 25yo @ 38w4d for tertiary Free Text/Narrative:: Intake & Output 08/16/20 08/17/20 08/17/20 22:59 06:59 14:59 Intake Total 2999 Output Total 1100 Balance 1899
[2020-08-17] MEDS ORDERED: Oxytocin/Lactated Ringers 30 UNIT/500 ML BAG IV SCH (10:30)
[2020-08-17] MEDS ORDERED: Ketorolac 30 MG/ML SDV IVPUSH SCH (10:30)
[2020-08-17] MEDS ORDERED: Lactated Ringers 1,000 ML IV SCH (10:30)
--- NOTE | 2020-08-17 10:59 | PCM.POSTAN ---
POST ANESTHESIA ASSESSMENT - MENTAL STATUS Mental Status: Alert - RESPIRATORY Respiratory Status: Respiratory Rate WNL - CARDIOVASCULAR CV Status: Pulse Rate WNL - GASTROINTESTINAL GI Status: No Symptoms - POST OP HYDRATION Hydration Status: Adequate & Stable
[2020-08-17] MEDS: Venlafaxine 75 MG Cap.ER PO SCH (12:02)
[2020-08-17] MEDS: Acetaminophen/oxyCODONE 325-5 MG Tab PO PRN ×2 (12:41→19:37)
[2020-08-17] MEDS: Nalbuphine 10 MG/1 ML Vial IVPUSH PRN (14:18)
--- NOTE | 2020-08-17 18:31 | OR ---
SURGEON: DONIS AGUILAR DATE OF PROCEDURE: 08/17/2020 PREOPERATIVE DIAGNOSIS: A 25-year-old, G3, P 2-0-0-2, with prelabor rupture of membrane, previous section x2. POSTOPERATIVE DIAGNOSIS: A 25-year-old, G3, P 2-0-0-2, with prelabor rupture of membrane, previous section x2. PROCEDURE: Tertiary lower segment section. ANAESTHESIA Spinal ESTIMATED BLOOD LOSS: 500. IV FLUID: 1000. URINE OUTPUT: 500. COMPLICATIONS: None NOTES AND FINDINGS: A live male delivered at 9:31 a.m. score is 8 and 9. Weight is 3740 g. BRIEF HISTORY ABOUT THE PATIENT: She is a 25-year-old, G3, P 2-0-0-2. She came in complaining of leakage of fluid and had some meconium in it. She was consented for a . She understood the risks, benefits, and alternatives, and she decided to proceed. DESCRIPTION OF PROCEDURE: The patient was taken to the operating room where spinal anesthesia was performed without difficulty. She was prepared and draped in the dorsal supine position with a leftward tilt. A Pfannenstiel skin incision was done with a scalpel and carried down to the fascia with the Bovie. The fascia was incised and extended upward and laterally. Fascia was from the rectus muscle superiorly and inferiorly. Very minimal adhesions were noted. The abdomen was entered in with blunt and sharp dissection. After entering into the peritoneum, it was extended manually to expose the lower uterine segment. The bladder flap was created after the Lisandro retractor was placed to expose the lower uterine segment. A lower uterine incision was made with a scalpel and extended manually. Fetus was in occiput transverse position and was elevated to the level of the incision. With fundal pressure, fetus was delivered without difficulty. Delayed cord clamping was observed. The cord was clamped and cut. The was handed over to the awaiting welding machine tender. The placenta was then delivered by manual massage of the uterine fundus. The uterus was then cleaned with a laparotomy sponge. The uterine incision was closed with two layers, first layer with 0 Vicryl, second layer was closed with 0 Monocryl. The incision was inspected and noted to be hemostatic. Both adnexa were also inspected and noted to be normal. The gutters were cleaned with moist laparotomy sponge. The Lisandro retractor was then removed and the peritoneum was closed. Then, the fascia was closed with 0 Vicryl in a continuous fashion. The skin was closed with 4-0 Monocryl in a continuous fashion. All instrument and pad counts were correct x2. BEBO / VAHID /[id number] MTDD
[2020-08-17] MEDS: Docusate Sodium 100 MG Cap PO SCH (20:25)
[2020-08-18] MEDS: Acetaminophen/oxyCODONE 325-5 MG Tab PO PRN ×3 (01:11→16:03)
[2020-08-18] MEDS: Nalbuphine 10 MG/1 ML Vial IVPUSH PRN (02:04)
[2020-08-18] MEDS ORDERED: Ibuprofen 800 MG Tab PO PRN (08:20)
[2020-08-18] MEDS ORDERED: Magnesium Hydroxide 400 MG/5 ML Susp 30 ML Cup PO PRN (08:20)
--- NOTE | 2020-08-18 08:29 | PCM.PNPP ---
- General Info Date of Service: 08/18/20 Subjective Update: Patient is doing well. Desires Ibuprofen. Has a reported history to Toradol, causing itching, but suspect allergy actually to Duramorph from epidural as she has not received Toradol this post-op course and is having itching. Also desires Milk of Magnesia. Bleeding minimal. going well. Has voided. Would like to shower. Functional Status: Reports: Pain Controlled, Tolerating Diet, Ambulating, Urinating - Review of Systems General: Reports: No Symptoms HEENT: Reports: No Symptoms Pulmonary: Reports: No Symptoms Cardiovascular: Reports: No Symptoms Gastrointestinal: Reports: No Symptoms Genitourinary: Reports: No Symptoms Musculoskeletal: Reports: No Symptoms Skin: Reports: No Symptoms Neurological: Reports: No Symptoms Psychiatric: Reports: No Symptoms - Patient Data Vital Signs - Most Recent: Last Vital Signs Temp 36.4 C 08/18/20 07:30 Pulse 102 H 08/18/20 07:30 Resp 16 08/18/20 07:30 BP 93/59 L 08/18/20 07:30 Pulse Ox 97 08/18/20 07:30 Weight - Most Recent: 94.347 kg I&O - Last 24 Hours: Intake & Output 08/17/20 08/18/20 08/18/20 22:59 06:59 14:59 Intake Total 1200 Output Total 750 675 Balance 450 -675 Lab Results - Last 24 Hours: Laboratory Results - last 24 hr 08/17/20 08/17/20 08/18/20 Range/Units 07:40 08:00 05:23 Hgb 11.3 L (12.0-16.0) g/dL Hct 34.6 L (36.0-46.0) % SARS-CoV-2 RNA (STEF) NEGATIVE (NEGATIVE) Blood Type O POSITIVE Antibody Screen NEGATIVE Med Orders - Current: Current Medications Bisacodyl (Dulcolax) 10 mg RECTAL ONETIME PRN PRN Reason: Constipation Diphenhydramine HCl (Benadryl) 25 mg IVPUSH Q6H PRN PRN Reason: Itching or Nausea Last Admin: 08/17/20 11:16 Dose: 25 mg Documented by: Docusate Sodium (Colace) 100 mg PO BID FLORI Last Admin: 08/17/20 20:25 Dose: 100 mg Documented by: Emollient Ointment (Lansinoh Hpa) 0 gm TOP ASDIRECTED PRN PRN Reason: Sore Nipples Last Admin: 08/17/20 13:08 Dose: 1 applic Documented by: Lactated Ringer's (Ringers, Lactated) 1,000 mls @ 500 mls/hr IV BOLUS FLORI Last Admin: 08/17/20 08:35 Dose: 999 mls/hr Documented by: Oxytocin/Sodium Chloride (Oxytocin 30 Unit/500 Ml-Ns) 30 unit in 500 mls @ 250 mls/hr IV TITRATE FLORI Lactated Ringer's (Ringers, Lactated) 1,000 mls @ 125 mls/hr IV ASDIRECTED FLORI Last Admin: 08/17/20 13:06 Dose: 125 mls/hr Documented by: Oxytocin/Lactated Ringer's (Pitocin In Lr 30 Units/500 Ml) 30 unit in 500 mls @ 2 mls/hr IV TITRATE FLORI; Protocol Tranexamic Acid 1,000 mg/ (Sodium Chloride) 110 mls @ 660 mls/hr IV ONETIME PRN PRN Reason: Bleeding Ibuprofen (Motrin) 800 mg PO Q8H PRN PRN Reason: Abdominal Pain Magnesium Hydroxide (Milk Of Magnesia) 30 ml PO BID PRN PRN Reason: Constipation Methylergonovine Maleate (Methergine) 0.2 mg IM ONETIME PRN PRN Reason: Excessive Vaginal Bleeding Misoprostol (Cytotec) 1,000 mcg RECTAL ONETIME PRN PRN Reason: excessive bleeding Nalbuphine HCl (Nubain) 5 mg IVPUSH Q3H PRN PRN Reason: Itching Last Admin: 08/18/20 02:04 Dose: 5 mg Documented by: Ondansetron HCl (Zofran) 4 mg IVPUSH Q4H PRN PRN Reason: Nausea/Vomiting Oxycodone/Acetaminophen (Percocet 325-5 Mg) 1 tab PO Q4H PRN PRN Reason: Pain (moderate 4-6) Oxycodone/Acetaminophen (Percocet 325-5 Mg) 2 tab PO Q4H PRN PRN Reason: Pain (moderate 4-6) Last Admin: 08/18/20 05:23 Dose: 2 tab Documented by: Oxytocin (Pitocin) 10 unit IM ASDIRECTED PRN PRN Reason: Excessive Vaginal Bleeding Sodium Chloride (Saline Flush) 10 ml FLUSH ASDIRECTED PRN PRN Reason: Keep Vein Open Sodium Chloride (Saline Flush) 2.5 ml FLUSH ASDIRECTED PRN PRN Reason: Keep Vein Open Sodium Chloride (Normal Saline) 10 ml IV ASDIRECTED PRN PRN Reason: IV Use Venlafaxine HCl (Effexor Xr) 75 mg PO DAILY [facility] Last Admin: 08/17/20 12:02 Dose: 75 mg Documented by: Discontinued Medications Cefazolin Sodium (Ancef) Confirm Administered Dose 2 gm .ROUTE .STK-MED ONE Stop: 08/17/20 07:27 Citric Acid/Sodium Citrate (Bicitra Solution) 30 ml PO ONETIME ONE Stop: 08/17/20 07:47 Last Admin: 08/17/20 09:01 Dose: Not Given Documented by: Ibuprofen (Motrin) 800 mg PO Q8H PRN PRN Reason: mild pain or fever Ketorolac Tromethamine (Toradol) Confirm Administered Dose 30 mg .ROUTE .STK-MED ONE Stop: 08/17/20 07:26 Ketorolac Tromethamine (Toradol) 30 mg IVPUSH Q6H [facility] Stop: 08/18/20 10:31 Midazolam HCl (Versed 1 Mg/Ml) Confirm Administered Dose 2 mg .ROUTE .STK-MED ONE Stop: 08/17/20 09:35 Morphine Sulfate (Duramorph Pf) Confirm Administered Dose 10 mg .ROUTE .STK-MED ONE Stop: 08/17/20 07:30 Ondansetron HCl (Zofran) Confirm Administered Dose 4 mg .ROUTE .STK-MED ONE Stop: 08/17/20 07:26 Oxytocin (Pitocin) Confirm Administered Dose 20 unit .ROUTE .STK-MED ONE Stop: 08/17/20 07:26 Phenylephrine HCl (Pablo-Synephrine) Confirm Administered Dose 10 mg .ROUTE .STK- MED ONE Stop: 08/17/20 07:26 - Interaction Disposition, : [place] in Room with Family Feeding: Breastfed ; Nursed Well Support Person: Mother, Significant Other - Recovery Exam Fundal Tone: Firm Fundal Level: 1 Fingerbreadths Below Umbilicus Fundal Placement: Midline Lochia Amount: Scant Lochia Color: Rubra/Red Bladder Status: Voiding Urinary Elimination: Voided Other Urinary Elimination, : Waiting for post catheter void. - Exam General: Alert, Oriented Neck: Supple Lungs: Normal Respiratory Effort GI/Abdominal Exam: Soft, Non-Tender, No Distention Extremities: No Pedal Edema Skin: Warm, Dry, Intact Wound/Incisions: Dressing Dry and Intact Neurological: No New Focal Deficit Psy/Mental Status: Alert, Normal Affect, Normal Mood - Problem List & Annotations (1) section SNOMED Code(s): 07963029 - section Status: Acute Current Visit: No - Problem List Review Problem List Initiated/Reviewed/Updated: Yes - My Orders Last 24 Hours: My Active Orders 08/18/20 08:20 Ibuprofen [Motrin] 800 mg PO Q8H PRN Magnesium Hydroxide [Milk of Magnesia] 30 ml PO BID PRN 08/18/20 08:25 Ready for Discharge [RC] PER UNIT ROUTINE - Assessment Assessment:: 25yo P3 s/p CS #3, POD#1 - Plan Plan:: Patient desires discharge home this evening if possible. Reviewed discharge acceptable if pain controlled, tolerating oral intake, voiding spontaneously, and ambulating without dizziness. Reviewed discharge instructions/precautions. All questions answered.
--- NOTE | 2020-08-18 08:51 | PCM48HPAN ---
Post Anesthesia Note - EVALUATION WITHIN 48HRS OF ANESTHETIC Vital Signs in Normal Range: Yes Patient Participated in Evaluation: Yes Respiratory Function Stable: Yes Airway Patent: Yes Cardiovascular Function Stable: Yes Hydration Status Stable: Yes Pain Control Satisfactory: Yes Nausea and Vomiting Control Satisfactory: Yes Mental Status Recovered: Yes Vital Signs: Last Vital Signs Temp 36.4 C 08/18/20 07:30 Pulse 102 H 08/18/20 07:30 Resp 16 08/18/20 07:30 BP 93/59 L 08/18/20 07:30 Pulse Ox 97 08/18/20 07:30 - COMMENTS/OBSERVATIONS Free Text/Narrative:: Just finished showering. Up walking in room and states pain is maybe 2-3 since up and showering but doing well.
[2020-08-18] MEDS: Docusate Sodium 100 MG Cap PO SCH (09:05)
[2020-08-18] MEDS: Venlafaxine 75 MG Cap.ER PO SCH (09:06)
[2020-08-18 16:30] VITALS: BP 98/62; PULSE 95
== END 2020-08-18 17:30 | disposition home or self-care (01) | DRG 540 ==
LOC: MW.OBCHECK 06:49 → MW.OB 06:54 → MW.OBCHECK 07:46 → MW.OB 14:17
PROVIDERS: ADMIT Obstetrics & Gynecology; ATTEND Obstetrics & Gynecology
PROC: 10D00Z1 Extraction of Products of Conception, Low, Open Approach (ICD-10-PCS; principal; 2020-08-17)
DX: O34.211 Maternal care for low transverse scar from previous cesarean delivery (principal); Z37.0 Single live birth; Z20.822 Contact with and (suspected) exposure to COVID-19; Z3A.38 38 weeks gestation of pregnancy
CPT/HCPCS: 36415; 59025; 85014; 85018; 85027; 86592; 86850; 86900; 86901; A9270-GY; J0690; J1200; J1885; J2250; J2270; J2300; J2370; J2405; J2590; J7120; U0002